=== PATIENT | female | born 1960 | race Caucasian/White ===

== ENCOUNTER 2018-10-13 11:03 | Emergency (ER) | payer BC ==
[~2018-10-13] VITALS: Ht 167.6 cm; Wt 108.0 kg
== END 2018-10-13 13:24 | disposition home or self-care (01) ==
LOC: ER 11:03
DX: S83.92XA Sprain of unspecified site of left knee, initial encounter (principal); S89.81XA Other specified injuries of right lower leg, initial encounter; D16.22 Benign neoplasm of long bones of left lower limb; X50.0XXA Overexertion from strenuous movement or load, initial encounter; Y93.89 Activity, other specified; Y92.89 Other specified places as the place of occurrence of the external cause; Y99.8 Other external cause status